=== PATIENT | female | born 1965 | race Caucasian/White ===

== ENCOUNTER 2022-12-12 07:37 | Emergency (ER) | payer OTHER ==
[~2022-12-12] VITALS: Ht 152.4 cm; Wt 78.0 kg
[2022-12-12 07:39] VITALS: BP 153/93; PULSE 105; RESP 18; TEMP 98.8; O2SAT 96
[2022-12-12] MEDS ORDERED: IBUPROFEN 600 MG TAB PO ONE (08:15)
[2022-12-12] MEDS ORDERED: guaiFENesin DM 200/20 MG-10 ML 10 ML UDC PO ONE (08:15)
[2022-12-12 08:18] VITALS: O2SAT 98
[2022-12-12] MEDS ORDERED: BENZ100C6 PO (08:22)
[2022-12-12] MEDS ORDERED: [UNRECOGNIZED DRUG - CODE] PO (08:22)
[2022-12-12] MEDS ORDERED: AZIT250T4 PO (08:22)
[2022-12-12] MEDS ORDERED: IBUP-1842 PO (08:22)
[2022-12-12 08:34] LABS: FLU A ANTIGEN negative (NEGATIVE); FLU B ANTIGEN negative (NEGATIVE)
[2022-12-12] MEDS ORDERED: NIRM1TAB PO (08:43)
[2022-12-12 09:15] VITALS: BP 139/79; PULSE 91; RESP 20; TEMP 98.2
== END 2022-12-12 09:15 | disposition home or self-care (01) ==
LOC: MED 07:37
DX: U07.1 COVID-19 (principal); I10 Essential (primary) hypertension; Z79.899 Other long term (current) drug therapy
CPT/HCPCS: 71045; 87426; 87804; 99284; Q0092; 99281